=== PATIENT | male | born 1955 | race Caucasian/White ===

== ENCOUNTER → 2018-07-01 10:53 | Outpatient (CLI) | payer OTHER, SELFPAY ==
--- NOTE | 2018-07-01 10:57 | DI.RAD.S_ITS ---
PROCEDURE: XR CHEST 2V INDICATIONS: cough TECHNIQUE: 2 views of the chest were acquired. COMPARISON: None. FINDINGS: Surgical changes and devices: None. Lungs and pleura: Linear opacities are present in the left base. Minimally increased pulmonary vascularity. Mediastinum: Mediastinal contours are normal. Heart size is normal. Bones and chest wall: No suspicious bony abnormalities. Soft tissues appear unremarkable. IMPRESSION: Linear left basilar opacities representing atelectasis or potentially developing airspace disease such as pneumonia. Minimal appearance of increased vascularity is also present. Dictated by: Silvia Damon M.D. on 07/01/2018 at 11:20 Approved by: Silvia Damon M.D. on 07/01/2018 at 11:20
== END ==
PROVIDERS: PCP Student in an Organized Health Care Education/Training Program; Visit Provider Nurse Practitioner Family
DX: J06.9 Acute upper respiratory infection, unspecified (principal); R05 Cough; R09.89 Other specified symptoms and signs involving the circulatory and respiratory systems
CPT/HCPCS: 71046